=== PATIENT | male | born 1955 | race African-American/Black ===

== ENCOUNTER 2018-03-04 11:20 | Day surgery (SDC) | payer BC ==
[2018-03-04] MEDS ORDERED: PROPOFOL 40 ML (14:02)
[2018-03-04] MEDS ORDERED: LIDOCAINE 2% (SDV) 5 ML INJ (14:02)
== END 2018-03-04 16:47 | disposition home or self-care (01) ==
LOC: GIL 11:20
DX: K29.70 Gastritis, unspecified, without bleeding (principal); K64.8 Other hemorrhoids; K57.90 Diverticulosis of intestine, part unspecified, without perforation or abscess without bleeding; Z86.010 Personal history of colon polyps; K20.8 Other esophagitis; K44.9 Diaphragmatic hernia without obstruction or gangrene; I10 Essential (primary) hypertension
CPT/HCPCS: 43239; 88305; 88312